=== PATIENT | male | born 1960 | race Caucasian/White ===

== ENCOUNTER 2019-02-05 18:27 | Inpatient (IN) | payer OTHER ==
--- NOTE | 2019-02-05 19:23 | PDOC.FPRHP ---
- History of Present Illness Chief Complaint: Tingling in Chest, Arm, Neck History of Present Illness: Praneeth Leon is a 58 y/o male with a PMH significant for CAD treated with 2 stents, HTN, DM2 and significant tobacco abuse who presents to the ED from an outside hospital following evaluation for tingling in his neck, arm, and chest. The patient states that he has been noticing these symptoms intermittently for several weeks, but noticed a distinct increase earlier today while he was at work. A coworker checked his BP and found his SBP to be elevated +200 mmHg. As such, he presented to an outside hospital where he was found to have A-Fib with RVR. He denied any outright chest pain, N/V or feelings of being cool or clammy, as well as syncopal episodes or SOB. He received Diltiazem 25 mg PO and was started on a Diltiazem gtt and subsequently transferred to [facility]. ED Course: While in the ED, he was found to have a critically low Mg value of 0.8 and was subsequently given Mg 2 g IVP. TSH were found to be WNL and Trops were 0.012 and < 0.010. No evidence of ST-Segment changes was noted by the ED staff. - Allergies/Adverse Reactions Allergies Allergy/AdvReac Type Severity Reaction Status Date / Time Penicillins Allergy Verified 02/05/19 21:50 - Home Medications Medication Instructions Recorded Confirmed Type Aspirin [Ecotrin Low Strength] 81 mg PO DAILY 02/05/19 02/05/19 History Atorvastatin Calcium 80 mg PO QPM 02/05/19 02/05/19 History Glimepiride 4 mg PO DAILY 02/05/19 02/05/19 History Losartan [Cozaar] 100 mg PO DAILY 02/05/19 02/05/19 History Metoprolol Succinate [Toprol XL] 50 mg PO DAILY 02/05/19 02/05/19 History Nitroglycerin 0.4 mg SL PRN PRN 02/05/19 02/05/19 History Omeprazole 02/05/19 History Varenicline Tartrate [Chantix] 0.5 mg PO 02/05/19 History - History PMHx: CAD, HTN, DM2 PSHx: Stent Placement x2, Vasectomy FHx: Mother (HTN, CVA) Social: 80 PY Tobacco Abuse and Social EtOH (<10 per week) w/o Hx of drug abuse. Code: Full - Review of Systems General: denies: fever/chills, weight/appetite/sleep changes, night sweats, fatigue Eyes: reports: vision changes (Patient noticed that his vision was slightly blurry this AM, acute on chronic) ENT: denies: nasal congestion, rhinorrhea Respiratory: denies: cough, congestion, shortness of breath, exercise intolerance Cardiovascular: reports: other (Patient states that he has had a "tingling" in his neck, jaw, face, and arms for several weeks. Did not describe as pain and did not associate with radition, numbness or additional CV symptoms.). denies: chest pain, palpitation, edema Gastrointestinal: denies: nausea, vomiting, diarrhea, constipation, abdominal pain Genitourinary: denies: dysuria Skin: denies: rashes, lesions Musculoskeletal: denies: pain, swelling, arthritis/arthralgias Neurological: denies: numbness, syncope, weakness Psychological: denies: anxiety, depression - Vital signs BP: [130/96] HR: [74] RR: [19] Tmax: [98.2] Pox: [96]% on [Room Air] Wt: [105 kg] - Physical Exam Constitutional: NAD, awake, alert and oriented, well developed HEENT: normocephalic and atraumatic, PERRLA, conjunctiva clear, no scleral icterus, grossly normal vision, grossly normal hearing, normal nasal mucosa, MMM , oropharynx clear, good dention Neck: supple, FROM, trachea midline, no LAD, no JVD Chest: no-tender to palpation, no lesions Heart: normal S1/S2, no murmurs/rubs/gallops, pulses present, no edema, other ( Irregularly irregular) Lungs: CTAB, no respiratory distress, good air movement, no rales/rhonchi, no wheezing, no retractions Abdomen: soft, non-tender, bowel sounds present, no masses/distention Musculoskeletal: normal structure, ROM grossly normal Neurological: no focal deficit Skin: no rash/lesions, capillary refill <2 seconds, no jaundice Heme/Lymphatic: no unusual bruising or bleeding, no purpura, no petechia, no LAD Psychiatric: normal mood and affect, good judgment and insight, intact recent and remote memory FMR H&P: Results - Labs Result Diagrams: 02/06/19 03:13 02/06/19 03:13 FMR H&P: A/P - Problem List (1) A-fib Current Visit: Yes Status: Acute Code(s): I48.91 - UNSPECIFIED ATRIAL FIBRILLATION (2) HTN (hypertension) Current Visit: Yes Status: Acute Code(s): I10 - ESSENTIAL (PRIMARY) HYPERTENSION (3) DM2 (diabetes mellitus, type 2) Current Visit: Yes Status: Acute (4) CAD (coronary artery disease) Current Visit: Yes Status: Acute Code(s): I25.10 - ATHSCL HEART DISEASE OF [place] CORONARY ARTERY W/O ANG PCTRS (5) Tobacco abuse Current Visit: Yes Status: Acute Code(s): Z72.0 - TOBACCO USE - Plan Patient is a 58 y/o male admitted from an outside hospital following evaluation of tingling in his neck, arms and chest. 1. A-Fib w/ RVR -New-onset in setting of multiple, significant cardiopulmonary risk factors -Patient was asymptommatic on evaluation - denied chest pain or SOB -Unremarkable physical exam -Trops: Negative x2 -BNP: 124 -M.8 - administered Mg 2 g IV, will recheck Mg in AM -Phos, TSH WNL -EKG: No evidence of ST-Segment elevation -Currently rate-controlled on Diltiazem gtt - will continue -Lovenox 1 mg/kg SC BID -TTE: Pending -CHADSVASC Score: 3 -HASBLED Score: 3 -Cardiology Consult: Pending - will contact in AM 2. CAD -Hx of stent placement x2 -Will continue home medication regimen 3. HTN -BP: 138/83 -Continue home medication regimen 4. DM2 -B on 02/05/19 -Continue home medication regimen 5. Tobacco Abuse -Nicotine Patch 21 mg daily -Will stress importance of tobacco cessation 6. GERD -Patient denies recent worsening of symptoms such as acrid taste, cough or hiccups -Will continue home medication regimen Code: Full Activity: Ad Suni Diet: CC VTE PPx: Therapeutic Lovenox w/ SCDs Dispo: Patient is admitted to Telemetry Floor for evaluation of new-onset A-Fib w/ RVR. Will consult Cardiology in AM and await results of TTE. Will proceed with rate control and anticoagulation as per above, as well as chronic medical conditions. Expected LOS > 48H FMR H&P: Upper Level - Pertinent history 58 y/o M PMHx DM2, HTN, CAD s/p 2 stents, tobacco abuse presents as transfer from [facility]. He reports he was at work and started having tingling in his neck, face, arms, hands. He reports he has gotten this periodically on and off for several months. Someone at work checked his BP and it was 200/104 so he went to the ED. On arrival at the ED he was found to have a-fib with RVR and was started on a dilt gtt. He denies any chest pain, but reports a headache that started after getting nitro paste. - Pertinent findings Vitals: BP: 159/91, Pulse: 79, Resp: 20, Temp: 98.6 (Oral), Pain: 0, O2 sat: 95 on (Room Air) PE: Gen - alert, oriented, NAD CV - irregularly irregular, regular rate Lungs - CTAB no wheezes Labs: K 3.3, Trop 0.013 - Plan Date/Time: 02/05/191921 I, Indira Thompson MD, PGY-3, have evaluated this patient and agree with findings/ plan as outlined by business analytics intern resident. Pertinent changes/additions are listed here. 1. New Onset A-fib with RVR Pt currently rate controlled on dilt gtt at 5. s/p lovenox 100mg. No known hx a- fib -Continue therapuetic lovenox -Monitor on tele -Continue dilt gtt -Consult cards in AM -Mag, Phos, TSH -Trend trops -Echo 2. HTN Pt BP initially 200s/100s, s/p nitro in ED now improved. -Resume home meds -Hydralazine prn 3. DM2 -Accuchecks -CC diet -Continue glimeperide 4. CAD s/p 2 stents -Continue ASA, metoprolol 5. Tobacco abuse counseled on cessation -nicoderm patch Dispo: admit to tele LOS: likely 2 days Addendum - Attending - Attending Attestation Date/Time: 02/05/19 1700 I personally evaluated the patient and discussed the management with Dr. Lindsay. I agree with the History, Examination, Assessment and Plan documented above with any addition or exceptions noted below. The patient was transferred from [place] for [facility] with RVR. He was experiencing tingling in the neck, arm and chest. He is on a diltiazem drip. Will continue this, get an echo. Plan to consult cardiology in the morning. Therapeutic lovenox for anticoagulation.
[2019-02-05 20:16] LABS: Magnesium 0.8 mg/dL (1.6-2.6)
[2019-02-05] MEDS ORDERED: Magnesium 2 GM/50 ML 2 GM in Premix Bag 1 BAG IVPB SCH (20:37)
[2019-02-05] MEDS ORDERED: Magnesium Oxide 400 MG TAB PO SCH (21:00)
[2019-02-05] MEDS ORDERED: Acetaminophen 325 MG TAB PO PRN (21:28)
[2019-02-05] MEDS ORDERED: Sodium Chloride 0.9% 1,000 ML IV SCH (21:30)
[2019-02-05 21:43] VITALS: BMI 33.2
[2019-02-05] MEDS ORDERED: Potassium Chloride 20 MEQ TAB PO SCH (22:30)
[2019-02-05] MEDS ORDERED: Diltiazem 125 MG in Sodium Chloride 0.9% 100 ML IVPB SCH (22:30)
[2019-02-05] MEDS: Nicotine 21 MG PATCH TD SCH (22:42)
[2019-02-06] MEDS ORDERED: Dextrose 50% Abboject 50 ML SYRINGE SLOW IVP PRN (00:14)
[2019-02-06] MEDS ORDERED: Dextrose 5% in Water 1,000 ML IV PRN (00:14)
[2019-02-06] MEDS ORDERED: Nitroglycerin 0.4 MG TAB (25 Tab Bottle) SL PRN (02:00)
[2019-02-06 03:41] LABS: Anion Gap 13 mmol/L (10-20); BUN (Urea Nitrogen) 14 mg/dL (8.4-25.7); Calc. Creatinine Clearance 141 mL/min (70-130); Calcium 8.3 mg/dL (7.8-10.44); Carbon Dioxide 27 mmol/L (22-29); Chloride 102 mmol/L (98-107); Estimated GFR-MDRD Greater than 90; Glucose 198 mg/dL (70-105); Magnesium 1.5 mg/dL (1.6-2.6); Potassium 3.3 mmol/L (3.5-5.1); Sodium 139 mmol/L (136-145)
[2019-02-06 03:46] LABS: #Eosinphils 0.2 thou/uL (0.0-0.7); #Lymphocytes 2.8 thou/uL (1.20-3.40); #Monocytes 0.7 thou/uL (0.11-0.59); #Neutrophils 8.6 thou/uL (1.40-6.50); %Basophils 0.1 % (0.0-1.0); %Eosinophils 1.4 % (0.0-10.0); %Lymphocytes 23.1 % (21.0-51.0); %Neutrophils 69.5 % (42.0-75.0); Hemoglobin 14.7 g/dL (14.0-18.0); Mean Corpuscular HGB CONC 34.7 g/dL (32.0-36.0); Mean Corpuscular Hemoglobin 30.1 pg (27.0-31.0); Mean Corpuscular Volume 86.9 fL (78.0-98.0); Mean Platelet Volume 9.1 fL (7.4-10.4); Platelet Count 215 thou/uL (130-400); RBC Distribution Width 12.3 % (11.5-14.5); Red Blood Cell (RBC) Count 4.87 mill/uL (4.70-6.10); White Blood Cell (WBC) Count 12.3 thou/uL (4.8-10.8)
--- NOTE | 2019-02-06 06:39 | PDOC.FM ---
- Subjective Subjective: Pt says he has no numbness or tingling in his hands anymore. He feels well. - Objective MAR Reviewed: Yes Vital Signs & Weight: Vital Signs (12 hours) Temp Pulse Resp BP BP Pulse Ox 02/06/19 03:54 98.3 F 74 16 134/69 96 02/05/19 23:31 97.2 F L 77 16 118/63 91 L 02/05/19 21:00 98.6 F 79 16 138/83 93 L Weight Weight 105.007 kg I&O: 02/04/19 02/05/19 02/06/19 06:59 06:59 06:59 Intake Total 1218.4 Balance 1218.4 Result Diagrams: 02/06/19 03:13 02/06/19 03:13 Phys Exam - Physical Examination Constitutional: NAD HEENT: PERRLA Neck: no nodes, supple, full ROM Respiratory: clear to auscultation bilateral Cardiovascular: no significant murmur Irregular rhythm, regular rate Gastrointestinal: soft, non-tender, positive bowel sounds Musculoskeletal: no edema, pulses present Neurological: moves all 4 limbs Lymphatic: no nodes Psychiatric: normal affect Skin: no rash Dx/Plan (1) A-fib Code(s): I48.91 - UNSPECIFIED ATRIAL FIBRILLATION Status: Acute (2) CAD (coronary artery disease) Code(s): I25.10 - ATHSCL HEART DISEASE OF [place] CORONARY ARTERY W/O ANG PCTRS Status: Acute (3) DM2 (diabetes mellitus, type 2) Status: Acute (4) HTN (hypertension) Code(s): I10 - ESSENTIAL (PRIMARY) HYPERTENSION Status: Acute (5) Tobacco abuse Code(s): Z72.0 - TOBACCO USE Status: Acute - Plan Plan: Patient is a 58 y/o male admitted from an outside hospital following evaluation of tingling in his neck, arms and chest. 1. New Onset A-fib with RVR Pt currently rate controlled on dilt gtt at 5. s/p lovenox 100mg. No known hx a- fib * Trops: 0.013 > < 0.01 * EKG: No evidence of ST-Segment elevation * BNP: 124 * Continue therapuetic lovenox * Monitor on tele * Continue dilt gtt * Consult cards in AM * Mag was low. TSH & Phos wnl * administered Mg 2 g IV, will recheck Mg in AM * Echo * CHADSVASC Score: 3 * HASBLED Score: 3 * Cardiology Consulted this morning, appreciate recs. 2. HTN Pt BP initially 200s/100s, s/p nitro in ED now improved. * Resume home meds * Hydralazine prn * Blood pressure has been doing well 3. DM2 * Accuchecks * CC diet * Continue glimeperide 4. CAD s/p 2 stents * Continue ASA, metoprolol 5. Tobacco abuse counseled on cessation * nicoderm patch 6. GERD Patient denies recent worsening of symptoms such as acrid taste, cough or hiccups * Will continue home medication regimen Code: Full Activity: Ad Suni Diet: CC VTE PPx: Therapeutic Lovenox w/ SCDs Dispo: Telemetry Inpt, Will consult Cardiology and await results of TTE. Will proceed with rate control and anticoagulation. Expected LOS > 48H. Addendum - Attending - Attending Attestation Date/Time: 02/06/19 2941 I personally evaluated the patient and discussed the management with Dr. Genao. I agree with the History, Examination, Assessment and Plan documented above with any addition or exceptions noted below. Pt is feeling better. will transition to oral diltiazem and eliquis. Consulting dung for the new-onset a.fib.
[2019-02-06] MEDS ORDERED: Glimepiride 4 MG TAB PO SCH (07:45)
[2019-02-06] MEDS: Losartan 25 MG TAB PO SCH (08:07)
[2019-02-06] MEDS: Aspirin 81 mg Enteric Coated Tablet PO SCH (08:07)
[2019-02-06] MEDS ORDERED: Enoxaparin Sodium 100 MG/ML SYRINGE SC SCH (09:00)
[2019-02-06] MEDS ORDERED: Diltiazem HCl SR 60 mg Capsule PO SCH (14:15)
--- NOTE | 2019-02-06 15:47 | CON ---
DATE OF CONSULTATION: HISTORY OF PRESENT ILLNESS: Praneeth Leon is a 58-year-old white male with a previous cardiac history of coronary artery stent placement. A little over one year ago, he has been evaluated for a trigger finger. An EKG was performed, which apparently showed significant ischemic changes. He then underwent cardiac catheterization followed by placement of 2 stents in [place]. He is uncertain if both stents were in the same artery or in two different arteries. He denied any chest discomfort prior to stent placement. Over the last 2 to 3 weeks, he states that he has just been feeling weaker as well as possibly more short of breath with exertion. He also noted a tingling feeling in his chest and felt somewhat of a tightness in his neck. His blood pressure was checked and found that his systolic was over 200 and he was sent to the emergency room in [place]. 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 He was found to be in atrial fibrillation with fast ventricular response, was given diltiazem 25 mg, placed on a diltiazem drip and transferred here. He does state that he feels better. He denies any chest discomfort. PAST MEDICAL HISTORY: Hypertension, diabetes, hypercholesterolemia, coronary artery disease. PAST SURGICAL HISTORY: Coronary artery stent placement, vasectomy. MEDICATIONS: 1. Aspirin 81 daily. 2. Atorvastatin 80 daily. 3. Glimepiride 4 mg q.a.m. 4. Losartan 100 mg daily. 5. Metoprolol 50 daily. 6. Nitroglycerin p.r.n. 7. Omeprazole. 8. Should be on Chantix, however he has not picked that prescription up yet. ALLERGIES: PENICILLIN. SOCIAL HISTORY: He smokes 2 packs per day. He drinks alcohol. REVIEW OF SYSTEMS: A 10-point review of systems is otherwise unremarkable. PHYSICAL EXAMINATION: VITAL SIGNS: Blood pressure 133/72, pulse of 85 and irregularly irregular. HEENT: PERRL. NECK: Supple. CHEST: Clear. CARDIAC: S1 and S2 normal without any S3, S4, or murmurs. NECK: Carotid upstrokes normal without bruits. ABDOMEN: Normal bowel sounds without tenderness or organomegaly. EXTREMITIES: Revealed no clubbing, cyanosis, or edema. NEUROLOGIC: Grossly intact. SKIN: Warm and dry. LABORATORY DATA: EKG when he presented in [place] revealed atrial fibrillation with a rate of 99 per minute and no significant ST or T-wave changes. Echocardiogram revealed mild concentric left ventricular hypertrophy with ejection fraction of 55% to 60%, mild mitral regurgitation and mild tricuspid regurgitation. White count 67969, hemoglobin 14.7, hematocrit 42.3, platelets 215,000. Sodium 139, potassium 3.3, chloride 102, carbon dioxide 27, BUN 14, creatinine 0.87. TSH is normal. Cardiac enzymes are unremarkable. IMPRESSION: 1. New onset atrial fibrillation, historically, this may have been present for several weeks. His rate currently is controlled on Cardizem 5 mg/hour drip. 2. Coronary artery disease status post stent placement over one year ago. 3. Hypertension. 4. Hypercholesterolemia. 5. Diabetes. 6. Smoker. PLAN: The patient has been anticoagulated with Eliquis 5 mg b.i.d. His rate currently is controlled. We had a long discussion regarding various options including transesophageal echo followed by electrical cardioversion. We discussed the risks of JESSICA and cardioversion including , teeth or esophagel damage, strok, embolic event, worse heart rhythm, etc. 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 Therefore for now , he will be anticoagulated. I will start p.o. 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 Job ID: [id number]
[2019-02-06] MEDS: Diltiazem HCl SR 60 mg Capsule PO SCH (20:37)
[2019-02-06] MEDS: Atorvastatin Calcium 40 MG TAB PO SCH (20:38)
[2019-02-06] MEDS: Nicotine 21 MG PATCH TD SCH ×2 (20:38→21:01)
[2019-02-06] MEDS: Apixaban 5 MG TAB PO SCH (20:38)
[2019-02-07 04:58] LABS: Anion Gap 14 mmol/L (10-20); BUN (Urea Nitrogen) 13 mg/dL (8.4-25.7); Calc. Creatinine Clearance 144 mL/min (70-130); Calcium 8.7 mg/dL (7.8-10.44); Carbon Dioxide 25 mmol/L (22-29); Chloride 105 mmol/L (98-107); Estimated GFR-MDRD Greater than 90; Glucose 154 mg/dL (70-105); Magnesium 1.7 mg/dL (1.6-2.6); Potassium 3.5 mmol/L (3.5-5.1); Sodium 140 mmol/L (136-145)
--- NOTE | 2019-02-07 05:00 | PDOC.FM ---
- Subjective Subjective: Pt is doing well. He is requesting cardioversion while he is here. No complaints. - Objective MAR Reviewed: Yes Vital Signs & Weight: Vital Signs (12 hours) Temp Pulse Resp BP Pulse Ox 02/06/19 20:35 98.9 F 89 20 133/85 98 Weight Weight 105.007 kg I&O: 02/05/19 02/06/19 02/07/19 06:59 06:59 06:59 Intake Total 1218.4 750 Output Total 1000 Balance 1218.4 -250 Result Diagrams: 02/06/19 03:13 02/07/19 03:29 Phys Exam - Physical Examination Constitutional: NAD HEENT: PERRLA, moist MMs Neck: no nodes, supple, full ROM Respiratory: clear to auscultation bilateral Cardiovascular: no significant murmur irregular rhythm, regular rate Gastrointestinal: soft, non-tender, positive bowel sounds Musculoskeletal: no edema, pulses present Neurological: moves all 4 limbs Lymphatic: no nodes Psychiatric: normal affect Skin: no rash Dx/Plan (1) A-fib Code(s): I48.91 - UNSPECIFIED ATRIAL FIBRILLATION Status: Acute (2) CAD (coronary artery disease) Code(s): I25.10 - ATHSCL HEART DISEASE OF [place] CORONARY ARTERY W/O ANG PCTRS Status: Acute (3) DM2 (diabetes mellitus, type 2) Status: Acute (4) HTN (hypertension) Code(s): I10 - ESSENTIAL (PRIMARY) HYPERTENSION Status: Acute (5) Tobacco abuse Code(s): Z72.0 - TOBACCO USE Status: Acute - Plan Plan: Patient is a 58 y/o male admitted from an outside hospital following evaluation of tingling in his neck, arms and chest. 1. New Onset A-fib with RVR Pt currently rate controlled on dilt gtt at 5. s/p lovenox 100mg. No known hx a- fib * Trops: 0.013 > < 0.01 * EKG: No evidence of ST-Segment elevation * BNP: 124 * Converted from therapuetic lovenox tp Eliquis yesterday * Monitor on tele * Dilt gtt transitioned to oral * Mag was low. TSH & Phos wnl * administered Mg 2 g IV, will recheck Mg in AM * Echo: EF 55-60%, Mild LVH, MR, & TR * CHADSVASC Score: 3 * HASBLED Score: 3 * Cardiology Consulted yesterday, appreciate recs. 2. HTN Pt BP initially 200s/100s, s/p nitro in ED now improved. * Resume home meds * Hydralazine prn * Blood pressure have been mildly elevated. Will evaluate home meds. 3. DM2 * Accuchecks * CC diet * Continue glimeperide 4. CAD s/p 2 stents * Continue ASA, metoprolol 5. Tobacco abuse counseled on cessation * nicoderm patch 6. GERD Patient denies recent worsening of symptoms such as acrid taste, cough or hiccups * Will continue home medication regimen Code: Full Activity: Ad Suni Diet: CC VTE PPx: Eliquis Dispo: Telemetry Inpt, started oral rate control and anticoagulation yesterday. Would like to see about getting cardioverted while here. Will reach out to cardiology today. Addendum - Attending - Attending Attestation Date/Time: 02/07/19 3261 I personally evaluated the patient and discussed the management with Dr. Genao. I agree with the History, Examination, Assessment and Plan documented above with any addition or exceptions noted below. Pt's a.fib remained rate controlled overnight. 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 Will discuss with cardiology.
[2019-02-07] MEDS: Losartan 25 MG TAB PO SCH (08:19)
[2019-02-07] MEDS: Aspirin 81 mg Enteric Coated Tablet PO SCH (08:19)
[2019-02-07] MEDS: Diltiazem HCl SR 60 mg Capsule PO SCH (08:19)
[2019-02-07] MEDS: Glimepiride 4 MG TAB PO SCH (08:19)
[2019-02-07] MEDS: Apixaban 5 MG TAB PO SCH ×2 (08:19→21:16)
[2019-02-07] MEDS ORDERED: Dronedarone HCl 400 MG TAB PO SCH (12:00)
[2019-02-07] MEDS: Dronedarone HCl 400 MG TAB PO SCH (17:02)
[2019-02-07] MEDS: Atorvastatin Calcium 40 MG TAB PO SCH (21:16)
[2019-02-07] MEDS: Nicotine 21 MG PATCH TD SCH (21:28)
[2019-02-08 05:18] LABS: Anion Gap 13 mmol/L (10-20); BUN (Urea Nitrogen) 12 mg/dL (8.4-25.7); Calc. Creatinine Clearance 153 mL/min (70-130); Calcium 8.9 mg/dL (7.8-10.44); Carbon Dioxide 25 mmol/L (22-29); Chloride 105 mmol/L (98-107); Estimated GFR-MDRD Greater than 90; Glucose 124 mg/dL (70-105); Potassium 3.7 mmol/L (3.5-5.1); Sodium 139 mmol/L (136-145)
--- NOTE | 2019-02-08 06:18 | PDOC.FM ---
- Subjective Subjective: He is ready for surgery and would like to get home soon. He did not sleep well overnight. - Objective MAR Reviewed: Yes Vital Signs & Weight: Vital Signs (12 hours) Temp Pulse Resp BP Pulse Ox 02/08/19 04:35 97.5 F L 80 16 145/80 H 95 02/07/19 21:10 98 F 86 19 144/81 H 96 Weight Weight 105.007 kg I&O: 02/06/19 02/07/19 02/08/19 06:59 06:59 06:59 Intake Total 1218.4 870 1020 Output Total 2100 1800 Balance 1218.4 -1230 -780 Result Diagrams: 02/06/19 03:13 02/08/19 04:20 Phys Exam - Physical Examination Constitutional: NAD HEENT: PERRLA, moist MMs, oral pharynx no lesions Neck: supple, full ROM Respiratory: clear to auscultation bilateral Cardiovascular: no significant murmur irregular rhythm, regular rate Gastrointestinal: soft, non-tender, positive bowel sounds Musculoskeletal: no edema, pulses present Neurological: moves all 4 limbs Psychiatric: normal affect Skin: normal turgor Dx/Plan (1) A-fib Code(s): I48.91 - UNSPECIFIED ATRIAL FIBRILLATION Status: Acute (2) CAD (coronary artery disease) Code(s): I25.10 - ATHSCL HEART DISEASE OF [place] CORONARY ARTERY W/O ANG PCTRS Status: Acute (3) DM2 (diabetes mellitus, type 2) Status: Acute (4) HTN (hypertension) Code(s): I10 - ESSENTIAL (PRIMARY) HYPERTENSION Status: Acute (5) Tobacco abuse Code(s): Z72.0 - TOBACCO USE Status: Acute - Plan Plan: Patient is a 58 y/o male admitted from an outside hospital following evaluation of tingling in his neck, arms and chest. 1. New Onset A-fib with RVR Pt currently rate controlled on dilt gtt at 5. s/p lovenox 100mg. No known hx a- fib * Trops: 0.013 > < 0.01 * EKG: No evidence of ST-Segment elevation * BNP: 124 * Converted from therapuetic lovenox tp Eliquis yesterday * Monitor on tele * Dilt gtt transitioned to oral * Mag was low. TSH & Phos wnl * administered Mg 2 g IV, will recheck Mg in AM * Echo: EF 55-60%, Mild LVH, MR, & TR * CHADSVASC Score: 3 * HASBLED Score: 3 * Cardiology Consulted yesterday, appreciate recs. 2. HTN Pt BP initially 200s/100s, s/p nitro in ED now improved. * Resume home meds * Hydralazine prn * Blood pressure have been mildly elevated. Will evaluate home meds. 3. DM2 * Accuchecks * CC diet * Continue glimeperide 4. CAD s/p 2 stents * Continue ASA, metoprolol 5. Tobacco abuse counseled on cessation * nicoderm patch 6. GERD Patient denies recent worsening of symptoms such as acrid taste, cough or hiccups * Will continue home medication regimen Code: Full Activity: Ad Suni Diet: CC VTE PPx: Eliquis Dispo: Telemetry Inpt, cardioversion this morning at 0800. Will see how he does today and get cardiology recs. Addendum - Attending - Attending Attestation Date/Time: 02/08/19 0989 I personally evaluated the patient and discussed the management with Dr. Genao. I agree with the History, Examination, Assessment and Plan documented above with any addition or exceptions noted below. The patient is scheduled for cardioversion today. If he does well, will likely d/c.
[2019-02-08] MEDS ORDERED: PROPOFOL 20 ML ONE (11:16)
[2019-02-08] MEDS: Losartan 25 MG TAB PO SCH (12:48)
[2019-02-08] MEDS: Aspirin 81 mg Enteric Coated Tablet PO SCH (12:48)
[2019-02-08] MEDS: Glimepiride 4 MG TAB PO SCH (12:51)
[2019-02-08] MEDS: Apixaban 5 MG TAB PO SCH (12:52)
[2019-02-08] MEDS: Dronedarone HCl 400 MG TAB PO SCH (12:52)
[2019-02-08 14:32] VITALS: TEMP 97.1
[2019-02-08 15:43] VITALS: BP 135/82
--- NOTE | 2019-02-09 14:33 | EKG ---
Test Reason : Blood Pressure : / mmHG Vent. Rate : 084 BPM Atrial Rate : 133 BPM P-R Int : 000 ms QRS Dur : 092 ms QT Int : 404 ms P-R-T Axes : 000 031 082 degrees QTc Int : 477 ms Atrial fibrillation with premature ventricular or aberrantly conducted complexes Abnormal ECG Confirmed by WILBUR CORNEJO DO ([id number]), news copy editor HALLIE VILA ([id number]) on 02/09/2019 2:33:14 PM Referred By: Confirmed By:WILBUR CORNEJO DO
== END 2019-02-08 16:10 | disposition home or self-care (01) | DRG 310 ==
LOC: ERS 18:27 → 2NO 19:45
PROVIDERS: ADMIT Family Medicine; ATTEND Family Medicine
PROC: B24BZZ4 Ultrasonography of Heart with Aorta, Transesophageal (ICD-10-PCS; principal; 2019-02-06)
PROC: 5A2204Z Restoration of Cardiac Rhythm, Single (ICD-10-PCS; 2019-02-06)
DX: I48.91 Unspecified atrial fibrillation (principal); I25.10 Atherosclerotic heart disease of native coronary artery without angina pectoris; I10 Essential (primary) hypertension; E11.9 Type 2 diabetes mellitus without complications; F17.210 Nicotine dependence, cigarettes, uncomplicated; K21.9 Gastro-esophageal reflux disease without esophagitis; E78.00 Pure hypercholesterolemia, unspecified; Z88.0 Allergy status to penicillin; Z95.5 Presence of coronary angioplasty implant and graft
CPT/HCPCS: 36415; 36416; 80048; 83735; 84100; 84443; 84484; 85025; 92960; 93005; 93306; 93312; J1650; J2704; J3475; J3490